=== PATIENT | female | born 1950 | race Hispanic/Latino ===

== ENCOUNTER → 2017-10-30 | Outpatient (CLI) | payer MEDICARE, OTHER ==
--- NOTE | 2017-10-30 15:43 | Diagnostic Imaging Report ---
#[id number] - [id number] #BILATERAL DIGITAL DIAGNOSTIC MAMMOGRAM WITH CAD: 10/30/2017 Comparison is made to exams dated: 10/29/2014 mammogram and 02/01/2012 mammogram - [facility]. Current study contains 6 films. The tissue of both breasts is heterogeneously dense. This may lower the sensitivity of mammography. Current study was also evaluated with a Computer Aided Detection (CAD) system. There are benign calcifications in both breasts. There also are benign lymph nodes in both breasts. No significant masses, calcifications, or other findings are seen in either breast. There has been no significant interval change. IMPRESSION: BENIGN There is no mammographic evidence of malignancy. A 1 year screening mammogram is recommended. The patient will be notified by letter of the results. Renaldo glover/lizabeth:10/30/2017 12:18:51 Link Assembler: Megan GIRON)(M), [facility] letter sent: Compared to Prior B9 Mammogram BI-RADS: 2 Benign
== END ==
LOC: MAMMO 10-18 11:48
PROVIDERS: ATTEND Internal Medicine
DX: N64.4 Mastodynia (principal)
CPT/HCPCS: G0204

== ENCOUNTER → 2021-02-05 | Outpatient (CLI) | payer OTHER | LOC: MAMMO 09:39 | PROVIDERS: ATTEND Internal Medicine | DX: Z12.31 Encounter for screening mammogram for malignant neoplasm of breast (principal) | CPT/HCPCS: 77067 ==

== ENCOUNTER → 2021-09-28 | Outpatient (CLI) | payer OTHER | LOC: DX 09:12 | PROVIDERS: ATTEND Internal Medicine | DX: M81.8 Other osteoporosis without current pathological fracture (principal) | CPT/HCPCS: 77080 ==

== ENCOUNTER → 2022-02-18 | Outpatient (CLI) | payer OTHER | LOC: MAMMO 10:51 | PROVIDERS: ATTEND Internal Medicine | DX: Z12.31 Encounter for screening mammogram for malignant neoplasm of breast (principal) | CPT/HCPCS: 77067 ==